=== PATIENT | male | born 1975 | race Caucasian/White ===

== ENCOUNTER 2019-08-12 11:36 | Outpatient (CLI) | payer OTHER ==
[2019-08-12] MEDS ORDERED: BUFFERED LIDOCAINE 10 ML SYRINGE ONE (12:05)
[2019-08-12] MEDS ORDERED: IOTHALAMATE MEGLUMINE 50 ML VIAL ONE (12:05)
[2019-08-12] MEDS ORDERED: GADOBUTROL 10 MMOL/10 ML VIAL ONE (12:06)
--- NOTE | 2019-08-12 14:19 | XRAY Report ---
Reason: BURSITIS OF RT SHLDR Procedure Date: 08/12/2019 Accession Number: [id number] / [id number] Procedure: FL - Arthrogram Needle Placement CPT Code: Final Report FULL RESULT: EXAM: RIGHT SHOULDER ARTHROGRAPHIC INJECTION WITH FLUOROSCOPIC GUIDANCE EXAM DATE: 08/12/2019 12:46 PM. CLINICAL HISTORY: Bursitis of right shoulder. COMPARISON: None. TECHNIQUE: The risks, benefits, and alternatives of the procedure were discussed with the patient. All questions were answered. Written and verbal consent were obtained. The glenohumeral joint was marked under fluoroscopy and prepped and draped in a sterile manner. Local anesthesia was performed with 1% lidocaine. A 22-gauge needle was then inserted into the glenohumeral joint. 10 mL of a solution containing 25% 1% lidocaine, 25% iodinated contrast, and a 1:200 dilution of gadolinium contrast in sterile saline was then injected. The needle was removed without immediate complication. Other: None. Fluoroscopy Time: 0.2 minutes. Number of Images: 2. FINDINGS: Bones and joints: No fracture or subluxation. Injection: Fluoroscopic images demonstrate needle placement and contrast in the glenohumeral joint. No contrast extravasation outside of the glenohumeral joint. IMPRESSION: Successful fluoroscopically guided arthrographic injection of the shoulder. RADIA
--- NOTE | 2019-08-12 14:47 | MRI Report ---
Reason: BURSITIS OF RT SHLDR Procedure Date: 08/12/2019 Accession Number: [id number] / [id number] Procedure: MRI - Arthrogram Shoulder RT CPT Code: Final Report FULL RESULT: EXAM: RIGHT SHOULDER MRI ARTHROGRAM WITH CONTRAST EXAM DATE: 08/12/2019 12:57 PM. CLINICAL HISTORY: Bursitis of right shoulder. COMPARISON: ARTHROGRAM NEEDLE PLACEMENT 08/12/2019 12:46 PM. TECHNIQUE: Multiplanar, multisequence T1-weighted and fluid-sensitive sequences of the shoulder after an arthrographic injection of dilute gadolinium, dictated under a separate exam. Other: None. FINDINGS: Acromioclavicular Region: The acromion is Type I unipartite. AC joint shows some hypertrophic synovium and marginal osteophytosis. The coracoacromial and coracoclavicular ligaments are intact. There is no contrast or fluid in the subacromial/subdeltoid bursa. Glenohumeral Region: Mild posterior subluxation of the humeral head with respect to the bony glenoid. No loose bodies. Articular cartilage is globally thinned and partially absent along the posterior inferior glenoid. The glenohumeral ligaments and joint capsule are unremarkable. Bone Marrow: There is broadening of the articular surfaces of the glenoid and the humeral head with some cartilaginous loss as described and some marginal osteophytosis. Small amount of subchondral cystic changes seen in the bony glenoid. Series 401 images 47-50. There is an area of mixed T1 and T2 signal with rounded cystic changes which is sharply demarcated in the proximal humeral head. Benign imaging features. No fractures. Labrum: Type II labral tear extends into the posterior labrum throughout. The anterior labrum shows some undermining but no convincing evidence for tear. Inferior labrum is visualized does appear intact. Biceps Tendon: The long head of the biceps tendon and biceps dariela are intact. Musculature/Rotator Cuff: Undersurface partial-thickness tear of the infraspinatus involves about 1/3-1/2 of the tendon thickness. Series 901 image 26 for example. Supraspinatus and teres minor appear unremarkable. Some increased T2 signal and T1 signal seen in the distal subscapularis is thought to be due to an artifact of injection rather than pathology. No proximal muscle bundle edema or fatty atrophy. Other: The subcutaneous tissues are unremarkable. IMPRESSION: 1. 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 AC joint shows some hypertrophic synovial changes and moderate osteoarthritic change. 3. Osteoarthritic change at the posterior inferior aspect of the glenohumeral articulation with some cartilaginous loss and broadening of the articular surfaces. Subchondral cystic changes also seen of the bony glenoid. 3. Type II SLAP lesion with extension throughout the entirety of the posterior labrum. No para labral cyst. 4. Benign enchondroma proximal humeral head. 5. Undersurface partial-thickness tear infraspinatus involves about 1/3-1/2 the tendon thickness. No contrast material is seen in the bursa. The amount of abnormal signal in the subscapularis is probably secondary to artifact of injection and not pathology. RADIA
[2019-08-12] MEDS ORDERED: BUFFERED LIDOCAINE 10 ML SYRINGE IU ONE (17:28)
[2019-08-12] MEDS ORDERED: GADOBUTROL 10 MMOL/10 ML VIAL IVP ONE (17:28)
[2019-08-12] MEDS ORDERED: IOTHALAMATE MEGLUMINE 50 ML VIAL IVP ONE (17:28)
== END 2019-08-12 11:37 | disposition home or self-care (01) ==
LOC: DI 11:36
PROVIDERS: ATTEND Orthopaedic Surgery
DX: M19.011 Primary osteoarthritis, right shoulder (principal); S43.431A Superior glenoid labrum lesion of right shoulder, initial encounter; D16.01 Benign neoplasm of scapula and long bones of right upper limb; M75.111 Incomplete rotator cuff tear or rupture of right shoulder, not specified as traumatic
CPT/HCPCS: 23350; 73222; 77002; A9585; Q9961

== ENCOUNTER 2020-01-13 09:53 | Day surgery (SDC) | payer OTHER ==
[~2020-01-13 09:53] MED LIST: cefTRIAXone 2 GM VIAL ONE
[2020-01-13] MEDS ORDERED: MIDAZOLAM 2 MG/2 ML VIAL IVP ONE (09:54)
[2020-01-13] MEDS ORDERED: ONDANSETRON 4 MG/2 ML VIAL IVP ONE (09:54)
[2020-01-13] MEDS ORDERED: PROPOFOL 200 MG/20 ML VIAL IVP ONE (09:54)
[2020-01-13] MEDS ORDERED: ROCURONIUM 50 MG/5 ML VIAL IVP ONE (09:54)
[2020-01-13] MEDS ORDERED: fentaNYL 100 MCG/2 ML VIAL IVP ONE (09:54)
[2020-01-13] MEDS ORDERED: DEXAMETHASONE 4 MG/ML VIAL IVP ONE (09:54)
[2020-01-13] MEDS ORDERED: LACTATED RINGERS 1,000 ML IV ONE ×2 (10:09→14:45)
--- NOTE | 2020-01-13 10:51 | ANESTHESIA ---
Pre-Anesthesia VS, & Labs - Diagnosis shoulder labral tear with tendonitis - Procedure right shoulder arthroscopy with SLAP repair Vital Signs: Temp Pulse Resp BP Pulse Ox 35.8 C L 58 L 16 126/78 100 01/13/20 09:57 01/13/20 09:57 01/13/20 09:57 01/13/20 09:57 01/13/20 09:57 Height 6 ft 1 in Weight (kg) 99 kg - NPO >8 hours Home Medications and Allergies Cyanocobalamin (Vitamin B-12) [Vitamin B-12 (100mcg tab)] 100 mcg PO 12/23/19 Ibuprofen [Motrin] 600 mg PO Q6H PRN 12/23/19 Allergies/Adverse Reactions: Allergies Allergy/AdvReac Type Severity Reaction Status Date / Time No Known Drug Allergies Allergy Verified 12/23/19 10:38 Anes History & Medical History - Anesthetic History Anesthesia Complications: reports: No previous complications, Other-see comment (never been under general anesthetic) Family history of Anesthesia Complications: Denies Family history of Malignant Hyperthermia: Denies - Medical History Cardiovascular: reports: None Pulmonary: reports: None, Sleep apnea Gastrointestinal: reports: None Urinary: reports: None Neuro: reports: None Musculoskeletal: reports: Osteoarthritis, Other Endocrine/Autoimmune: reports: None Blood Disorders: reports: None Skin: reports: None Smoking Status: Never smoker Psychosocial: reports: Alcohol (occasional) - Surgical History Orthopedic: Arthroscopic surgery Exam General: Alert, Oriented x3, Cooperative, No acute distress Dental: WNL Mouth Openin Fingerbreadth Neck Mobility: Normal Mallampati classification: II Thyromental Distance: 4-6 cm Respiratory: Lungs clear, Normal breath sounds, No respiratory distress, No accessory muscle use Cardiovascular: Regular rate, Normal S1, Normal S2, No murmurs Abdomen: Normal bowel sounds, Soft, No tenderness, No hepatospenomegaly, No masses Extremities: No clubbing, No cyanosis, No edema, Normal pulses, No tenderness/swelling Neurological: Normal gait, Normal speech, Strength at 5/5 X4 ext, Normal tone, Sensation intact, Cranial nerves 3-12 NL, Reflexes 2+ Mental/Cognitive Status: Alert/Oriented X3, Normal for patient Cognitive Status: Within normal limits Plan Anesthesia Type: General, Interscalene Block Regional Block: Per Surgeon's request for Post Op pain control Consent for Procedure(s) Verified and Reviewed: Yes Code Status: Attempt Resuscitation ASA classification: 2-Mild systemic disease Is this case an emergency?: No
[2020-01-13] MEDS ORDERED: EPINEPHrine 1 MG/ML AMP ONE ×2 (12:49→13:00)
[2020-01-13] MEDS ORDERED: BUPIVACAINE 0.25% PF 30 ML VIAL ONE (12:49)
[2020-01-13] MEDS ORDERED: EPINEPHrine 1 MG/ML AMP IR ONE (13:41)
[2020-01-13] MEDS ORDERED: BUPIVACAINE 0.25% PF 30 ML VIAL SUBQ ONE (14:58)
[2020-01-13] MEDS ORDERED: oxyCODONE 5 MG TABLET PO PRN (15:07)
[2020-01-13] MEDS ORDERED: ONDANSETRON 4 MG/2 ML VIAL IVP PRN (15:07)
--- NOTE | 2020-01-13 15:18 | OPERATIVE REPORT ---
Operative Report - Other Other Information/Narrative: Date of Surgery: 13 January 2020 Pre-Op Diagnosis: Right shoulder labral tear. Right shoulder osteoarthritis. Right long head of biceps tendinitis. Right shoulder SLAP tear Procedure: Right shoulder arthroscopy with labrum debridement, rotator cuff debridement, and subacromial decompression. Right mini open long head of biceps tenodesis Postop Diagnosis: Same Primary Surgeon: Darian Ambrosio Secondary Surgeon: Nemesio Rodney Complications: None EBL: 25 IMPLANTS: Arthrex fiber tack x1 POSTOPERATIVE PLAN: 0-2 weeks-Sling at all times. Pendulum exercises 5 times per day. 2-6 weeks-Passive and active range of motion without limitations. No active f lexion of the elbow 6-12 weeks-Gradually increase strengthening focusing on rotator cuff and scapular stabilizers per protocol. 16 weeks and beyond-Introduce dynamic activities. EXAMINATION UNDER ANESTHESIA: ROM: Full and equal to the contralateral side Anterior load and shift: Grade 1/2, which was equal to the contralateral side Posterior load and shift: Stable Inferior sulcus: Grade 1 ARTHROSCOPIC FINDINGS: Rotator interval: Normal Biceps tendon & SLAP: Large unstable SLAP tear that extended into a degenerative posterior labral tear. Biceps tendon was thickened inside the joint Subscapularis: Normal Rotator Cuff: Small partial-thickness tear of the leading edge of supraspinatus inside the joint of approximately 10%, this was debrided. The rotator cuff was otherwise normal as viewed from inside the joint and the subacromial space HAGL: Normal Labrum: Degenerative tearing of the labrum was seen in the anterior inferior, inferior, posterior inferior, and posterior superior labrum. The capsule itself was stable. Unstable portions of labrum were removed Glenoid Cartilage: There was a 10 mm x 15 mm area of full-thickness cartilage loss in the posterior glenoid adjacent to the labrum. Humeral Head Cartilage: There is a 20 mm x 10 mm area of full-thickness cartilage loss that was relatively central in the humeral head INDICATION FOR SURGERY: 44-year-old male who had right anterior and lateral shoulder pain that did not respond to conservative treatment. Injections helped for a short period of time but the patient desired long-term results. I discussed with him that his x-rays and MRI showed degenerative changes in the shoulder and there were very few treatments I would be helpful for that. The biceps tendon was symptomatic and a tenodesis was planned. Nonoperative managment failed to resolve symptoms. The risks, benefits, and alternatives were discussed. Risks included pain, bleeding, infection, damage to nearby structures, lack of symptom relief, implant complications, stiffness, need for further surgeries, DVT, PE, stroke, and even . He signed a written consent form. PROCEDURE IN DETAIL: The patient was met in the preoperative holding on the day of the procedure. Operative extremity was signed. Consent was verified. They desired to proceed. Regional anesthesia was obtained in the preoperative area. They were brought to the operating room and surrendered to anesthesia. Once general anesthesia was obtained they were placed in the lateral decubitus position with the operative side up. An axillary roll was placed and all bony prominences were well-padded. A surgical timeout was held to confirm the patient procedure, identity, procedure, laterality, allergies, images, and antibiotics. All were in agreement we proceeded. A standard diagnostic arthroscopy was performed utilizing posterior and anterosuperior portals. The anterosuperior portal was created under direct visualization and localized with a spinal needle. The 7 mm cannula was placed anteriorly. The findings of the diagnostic arthroscopy can be found above. I then used the shaver to excise all unstable portions of the labrum. The decision was made to not repair the degenerative labral tear as this would be unlikely to heal and unlikely to improve his function. See later there was significant cartilage loss both of the humeral head and on the glenoid but the edges were stable so chondroplasty was not necessary. I then used a biter to cut the biceps tendon at its insertion and then used the shaver to debride the stump. The small unstable partial supraspinatus tear was excised with a shaver. Final images were then taken SUBACROMIAL DECOMPRESSION: The instruments and cannula were then removed from the glenohumeral joint. The scope trocar was placed in the posterior portal and the acromion was felt. It was then inserted just under the acromion scraping along the bone until the CA ligament was felt. The scope trocar was then brought just lateral to the CA ligament and out the anterior incision. The cannula was then brought over the scope trocar arthroscope were inserted. The arthroscope was backed up until the shaver and arthroscope in the subacromial space. I then systemically debrided the bursa using a sucker shaver and radiofrequency ablation wand. A direct lateral incision was made and the bursectomy and decompression was completed through the lateral incision. All soft tissue was debrided from the underside of the acromion and the posterior edge of the CA ligament was lifted. Care was taken to keep the deltoid fascia intact. The rotator cuff was then evaluated and there was no full-thickness tear. Final images were taken. MINI OPEN BICEPS TENODESIS: A 5 cm incision was made near the axillary fold centered over the pectoralis major tendon. Electrocautery was used to obtain hemostasis. The fascia was opened with dissection scissors. Blunt digital dissection was used to identify the intertubercular groove just under the pectoralis major tendon. The long head of the biceps tendon was visualized within this interval. The short head of the biceps was retracted with my finger and the right angle was used to deliver the tendon of the long head of the biceps out of the wound. A sanchez elevator was then used to debride all synovial tissue from the intertubercular groove. A fibertack was placed high within the groove. Both limbs of the fibertack were pulled on and it was well fixed. I then whipstitched the biceps tendon starting 2 cm proximal to the musculotendinous junction down to the musculotendinous junction and back up to the same 2 cm location with a single limb of the suture tack. The other suture was placed once through the tendon at the 2 cm location. I then cut all excess tendon off. The suture limb that was passed the single time was then pulled on and this reduced the tendon nicely into the groove. The elbow was fully straightened and there was no excess tension on the repair site. I then tied 7 reverse half hitches alternating to secure the tendon in its place. The wound was then irrigated copiously. The portal sites were then closed with 3-0 Monocryl buried. Any open incisions were closed with 2-0 Vicryl in the dermis and a running 3-0 Monocryl in the skin. Mastisol and Steri-Strips were applied. A sterile dressing and a sling was applied. A sling was placed. The patient was awakened and transferred to the recovery room.
[2020-01-13] MEDS ORDERED: KETOROLAC 15 MG/ML VIAL ONE (15:21)
[2020-01-13] MEDS ORDERED: ACETAMINOPHEN 1,000 MG/100 ML 100 ML IV ONE (15:21)
[2020-01-13 16:06] VITALS: BP 107/54
== END 2020-01-13 09:54 | disposition home or self-care (01) ==
LOC: SDS 09:53
PROVIDERS: ATTEND Orthopaedic Surgery
DX: M75.51 Bursitis of right shoulder (principal); M75.21 Bicipital tendinitis, right shoulder; M19.011 Primary osteoarthritis, right shoulder; S43.431A Superior glenoid labrum lesion of right shoulder, initial encounter; S46.011A Strain of muscle(s) and tendon(s) of the rotator cuff of right shoulder, initial encounter; G47.30 Sleep apnea, unspecified